=== PATIENT | female | born 1975 | race Caucasian/White ===

== ENCOUNTER 2018-10-11 11:55 | Day surgery (SDC) | payer OTHER ==
[2018-10-08 14:40] LABS: HEMATOCRIT 36.5 % (36.0-48.0); HEMOGLOBIN 12.5 g/dL (12-16); MCH 32.7 pg (26.0-34.0); MCHC 34.2 g/dL (31.0-37.0); MCV 95.5 fL (80.0-100.0); MEAN PLATELET VOLUME 9.1 fL (7.4-10.4); RBC 3.82 10x6/uL (4.00-5.40); RDW 12.7 % (11.5-14.5); WBC 6.4 10x3/uL (4.8-10.8)
[~2018-10-11] VITALS: Ht 165.1 cm; Wt 54.4 kg
[~2018-10-11 11:55] MED LIST: ALDACTONE50 MG PO; ATIVAN0.5 MG PO; DICLOFENAC SODI50 MG PO; LAMISIL PO; TIMOPTIC 0.5 % O5 ML EACH EYE; ZOLOFT50 MG PO
[2018-10-11 13:46] VITALS: BP 93/62; Ht 165.1 cm; Wt 54.4 kg
[2018-10-11 14:00] LABS: HCG URINE NEGATIVE (NEGATIVE)
[2018-10-11] MEDS ORDERED: IBUPROFEN800 MG PO (19:36)
[2018-10-11] MEDS ORDERED: PHENERGAN25 M1 PO (19:36)
[2018-10-11] MEDS ORDERED: HYDROCODON-ACE1 EAC2 PO (19:37)
--- NOTE | 2018-10-11 19:40 | NUR ---
PATIENT DRESSED IN PERSONAL CLOTHING, BOOT TO LEFT FOOT IN PLACE. RIGHT FOREARM PIV DC'D WITH TIP INTACT. DISCHARGE INSTRUCTIONS REVIEWED WITH PATIENT, DISCHARGED HOME VIA WHEELCHAIR TO PRIVATE VEHICLE WITH SPOUSE
== END 2018-10-11 19:40 | disposition home or self-care (01) ==
LOC: D.OPS 11:55 → D.PAN 15:00 → D.OPS 19:40
PROVIDERS: Anesthesiology; Podiatrist
DX: M21.621 Bunionette of right foot (principal); M21.612 Bunion of left foot